=== PATIENT | male | born 1980 | race Hispanic/Latino ===

== ENCOUNTER 2017-01-21 17:31 | Emergency (ER) | payer SELFPAY ==
[~2017-01-21] VITALS: Ht 157.5 cm; Wt 68.3 kg
[2017-01-21 18:11] LABS: HEMATOCRIT 46.5 % (38.0-50.0); MCH 28.8 PG (29.0-34.0); MCHC 35.1 G/DL (30.0-36.0); MCV 82.3 FL (86-99); MEAN PLAT.VOLUME 11.2 uM^3 (9.0-12.4); PLATELET COUNT 243 K/uL (156-360); RBC DIS.WIDTH-CV 11.7 % (11.8-14.6); RED BLOOD COUNT 5.65 M/uL (4.00-5.50); WHITE BLOOD COUNT 6.3 K/uL (4.1-10.2)
[2017-01-21 18:12] LABS: IMM.PLATELET FRACTION 6.5 (1-7)
[2017-01-21 18:19] LABS: CHLORIDE 99 mEq/L (99-109); POTASSIUM 3.8 mEq/L (3.7-5.4); SODIUM 135 mEq/L (136-147)
[2017-01-21 18:22] LABS: ANION GAP 12 MEQ/L (2-14)
[2017-01-21 18:25] LABS: UREA NITROGEN (BUN) 17 mg/dL (9-23)
[2017-01-21 18:27] LABS: GFR ESTIMATE (CALCULATED) > 59 mL/min/
[2017-01-21 18:37] LABS: TROP-I INTERPRETATION NEGATIVE; TROPONIN-I < 0.01 ng/mL (0.0-0.30)
[2017-01-21 18:42] LABS: GLUCOSE 429 mg/dL (70-99)
[2017-01-21] MEDS ORDERED: PROTONIX20 MG PO (18:46)
[2017-01-21 19:05] VITALS: BP 113/79
== END 2017-01-21 19:05 | disposition home or self-care (01) ==
LOC: EME 17:31
DX: R07.9 Chest pain, unspecified (principal); K21.9 Gastro-esophageal reflux disease without esophagitis; R73.9 Hyperglycemia, unspecified
CPT/HCPCS: 71020; 80048; 84484; 85027; 93005; 99281; 99284